=== PATIENT | female | born 1995 | race African-American/Black ===

== ENCOUNTER 2023-07-27 22:54 | Emergency (ER) | payer SELFPAY ==
[~2023-07-27] VITALS: Ht 152.4 cm; Wt 65.8 kg
[2023-07-27] MEDS: IPRATROPIUM NEB FS 0.5 MG/2.5 ML AMPUL.NEB NEB ONE (23:09)
[2023-07-27] MEDS: ALBUTEROL FS 2.5 MG/3 ML VIAL.NEB CONTNEB ONE (23:09)
[2023-07-27] MEDS ORDERED: ALBUTEROL FS 2.5 MG/3 ML VIAL.NEB ONE (23:11)
[2023-07-27] MEDS ORDERED: IPRATROPIUM NEB FS 0.5 MG/2.5 ML AMPUL.NEB ONE (23:11)
[2023-07-27 23:15] VITALS: O2SAT 95
[2023-07-27 23:25] VITALS: O2SAT 99
[2023-07-27] MEDS ORDERED: predniSONE 20 MG TABLET ONE (23:28)
[2023-07-27] MEDS: ACETAMINOPHEN 325 MG TABLET PO ONE (23:29)
[2023-07-27] MEDS ORDERED: ACETAMINOPHEN ES 500 MG TABLET ONE (23:29)
[2023-07-27] MEDS: predniSONE 20 MG TABLET PO ONE (23:29)
[2023-07-27 23:30] VITALS: O2SAT 99
[2023-07-27 23:40] VITALS: O2SAT 99
[2023-07-28] MEDS ORDERED: PRED50TA PO (01:37)
[2023-07-28] MEDS ORDERED: ALBU6.7H9 INH (01:37)
[2023-07-28 01:53] VITALS: BP 128/70; TEMP 98; O2SAT 97
== END 2023-07-28 03:24 | disposition home or self-care (01) ==
LOC: ER 22:59
DX: B34.9 Viral infection, unspecified (principal); J45.901 Unspecified asthma with (acute) exacerbation; Z20.822 Contact with and (suspected) exposure to COVID-19
CPT/HCPCS: 99285; 71045; 87426; 87804 ×2; 87420; 94799; 94640 ×2; J7512